=== PATIENT | male | born 1940 | race Caucasian/White ===

== ENCOUNTER 2017-03-04 13:34 | Inpatient (IN) | payer MEDICARE ==
[~2017-03-04] VITALS: Ht 182.9 cm; Wt 85.4 kg
--- NOTE | ~2017-03-04 | HP ---
History And Physical [place] [id number] [facility] [place]. [address] NAME: DUYEN RIVERA : 42 STATUS : ADM IN [facility]#: [id number] AGE: 76 ADM/REG DATE : 03/04/17 MR#: [id number] REPORT SERV DATE: 03/04/17 DICTATED BY: JOSELITO FLORES II DATE: 03/04/17 REPORT STATUS : Draft TRANSCRIBED BY: MODL DATE: 03/04/17 DATE OF ADMISSION: 03/04/2017 PRIMARY ONCOLOGIST: Dr. Chaudhari. CHIEF COMPLAINT: Nausea, abdominal pain, constipation, and decreased urine output. HISTORY OF PRESENT ILLNESS: The patient is a 76-year-old male with a history of metastatic urothelial cancer, coronary artery disease, GERD, and depression who presented to [facility] from Dr. Chaudhari's office after persistent nausea and constipation since last week. The patient received chemotherapy and has been nauseous ever since, but has since not been able to pass stool and has noticed a drop in his urine output. In the clinic, Dr. Chaudhari has been giving fluids, even a bottle of Mag citrate, and the patient has still not been able to go at home. He had tried multiple things and his even tried an enema and he still has not had a bowel movement. Dr. Chaudhari asked for admission for further workup of possible bowel obstruction. Currently, the patient does have significant amount of pain in his right upper quadrant. Notes that his abdomen has become quite distended with hard stool on the right. He notes most of his problems have occurred after his ileal conduit was placed. Otherwise, the patient denies any fevers, chills, shortness of breath, or chest pain. REVIEW OF SYSTEMS: 10-point review of systems otherwise negative except for HPI. PAST MEDICAL HISTORY: 1. Metastatic urothelial carcinoma, diagnosed in 2014; status post cystoprostatectomy in 2015, as well as multiple rounds of chemotherapy, immunotherapy, and most recently Taxotere with progression. 2. CAD with stent in June 2014. 3. Hyperlipidemia. 4. Depression. 5. GERD. 6. Abdominal hernia. SURGICAL HISTORY: Cystoprostatectomy with ileal conduit, port placement, cardiac stent. SOCIAL HISTORY: The patient is a former smoker up to three packs a day for 20 years, discontinued in 1983. Denies any alcohol or drug use. The patient is with his spouse and three children. FAMILY HISTORY: Mother and father with no history of cancer. HOME MEDICATIONS: MS Contin, aspirin, calcium, Compazine, Decadron, Lexapro, multivitamin, oxycodone, potassium, Protonix, simvastatin, Zofran. PHYSICAL EXAMINATION: VITAL SIGNS: Blood pressure 111/62, temperature 97.5, pulse 122, respirations 30, O2 History And Physical [address] [address] NAME: DYUEN RIVERA : 41 STATUS : ADM IN [facility]#: [id number] AGE: 76 ADM/REG DATE : 03/04/17 MR#: [id number] REPORT SERV DATE: 03/04/17 DICTATED BY: JOSELITO FLORES II DATE: 03/04/17 REPORT STATUS : Draft TRANSCRIBED BY: DONELL DATE: 03/04/17 saturation 95% on room air. GENERAL: The patient is somewhat malnourished and pale looking, but in no acute distress. NECK: Supple. Nontender. No lymphadenopathy or thyromegaly. HEENT: Moist mucous membranes. Pupils are equal, round, reactive to light. Conjunctivae clear. RESPIRATORY: Lungs are clear to auscultation bilaterally. No wheezes, rhonchi, or rales. Nonlabored breathing. CARDIOVASCULAR: Regular rate and rhythm. No murmurs, rubs, or gallops. ABDOMEN: Has an ileal conduit in the right lower quadrant with apparent hernia and distended hard masses in the right lower quadrant and left lower quadrant with decreased bowel sounds and tenderness to palpation in the right where the masses are. EXTREMITIES: No evidence of cyanosis, clubbing, edema. SKIN: No lesions, rashes, or wounds. NEUROLOGIC: No focal deficits. LABORATORY DATA: Pending. ASSESSMENT AND PLAN: The patient is a 76-year-old male with: 1. Likely bowel obstruction versus severe obstipation. We will check a flat and upright abdominal film and we will likely end up needing abdominal CT scan. We will wait until the x-rays are done before consideration of NG-tube. Otherwise, we will provide IV fluids, pain control antiemetics, and supportive care until further evaluation. 2. Metastatic urothelial carcinoma. Followed by Dr. Chaudhari. I will defer to him. 3. Oliguria. We will give IV fluids. 4. Coronary artery disease, gastroesophageal reflux disease, and hyperlipidemia. Continue home medications. 5. The patient is full code. Deep venous thrombosis prophylaxis with Lovenox. DANIEL/DONELL Joselito Flores II, MD / [id number] CC: MD BRITT Nicolas II, ANDREW OLIVER
--- NOTE | ~2017-03-04 | CN ---
Consultation Report [facility] [address] [place]. [address] NAME: DUYEN RIVERA : 42 STATUS : ADM IN [facility]#: [id number] AGE: 76 ADM/REG DATE : 03/04/17 MR#: [id number] REPORT SERV DATE: 03/05/17 DICTATED BY: YUNIEL LÓPEZ DATE: 03/05/17 REPORT STATUS : Draft TRANSCRIBED BY: MODL DATE: 03/05/17 CONSULTATION NOTE DATE OF CONSULTATION: 03/05/2017 SERVICE: General Surgery. ATTENDING: Yuniel López M.D. RESIDENT: Rebecca Bowen M.D. CHIEF COMPLAINT: Nausea and abdominal pain, as well as decreased urine output. HISTORY OF PRESENT ILLNESS: This is a 76-year-old male, with a history of metastatic urothelial cancer, who is status post ileal conduit, who presented with one week of nausea and constipation. The patient's notes he has also had no urine output for the last 48 hours. He does have to take medication usually to have regular bowel movements. In general he has bowel movements once or twice a week, however, he has not had a bowel movement at all this week despite enemas and Mag citrate. The patient had a flat and upright abdominal x- ray, showing several air-fluid levels as well as his hernia appeared to be containing a loop of large bowel that has a significant amount of stool burden within it. CT scan with IV and p.o. contrast has been ordered, but has not yet been done at this time. The patient denies any fever, he is currently having any nausea, he is n.p.o. at this time. does note that he has had generalized weakness for the past several days. REVIEW OF SYSTEMS: Negative on 10-point review except as noted in HPI. PAST MEDICAL HISTORY: Metastatic urothelial cancer currently under taking chemotherapy, coronary artery disease, hyperlipidemia, depression, GERD, and known abdominal hernia. PAST SURGICAL HISTORY: Cystoprostatectomy, ileal conduit, cardiac stents, and Port-A-Cath placement. SOCIAL HISTORY: The patient is a former smoker with a 60 pack year history, quit in 1983. Denies any alcohol or drug use. FAMILY HISTORY: Mother and father both , but no history of cancer. HOME MEDICATIONS: MS Contin, aspirin, calcium, Compazine, Decadron, Lexapro, multivitamins, oxycodone, potassium, Protonix, simvastatin, and Zofran. IMAGING: Flat and upright abdominal x-ray shows small bowel air-fluid levels in the left upper quadrant and possible bowel obstruction. The CT scan is pending at this time. Consultation Report [facility] [address] [place]. [address] NAME: DUYEN RIVERA : 42 STATUS : ADM IN [facility]#: [id number] AGE: 76 ADM/REG DATE : 03/04/17 MR#: [id number] REPORT SERV DATE: 03/05/17 DICTATED BY: YUNIEL LÓPEZ DATE: 03/05/17 REPORT STATUS : Draft TRANSCRIBED BY: DONELL DATE: 03/05/17 LABORATORY DATA: CBC; white count 7.7, hemoglobin 9.8, hematocrit 30, platelets 331. BMP; sodium is 136, potassium 5.1, chloride 98, carbon dioxide 27, BUN 71, creatinine 3.84, glucose 133, albumin is 2.7, a lactate was done yesterday on admission, it was 2.2 at that time. PHYSICAL EXAMINATION: VITAL SIGNS: Temperature 97.5, pulse 105, respirations 16, blood pressure 129/82, O2 saturation 94% on 2 L nasal cannula. GENERAL: The patient is slightly drowsy, but follows commands and answers questions. In no acute distress. CVS: Regular rate and rhythm. LUNGS: Clear to auscultation bilaterally. ABDOMEN: Soft. The patient does have mild diffuse tenderness to palpation especially over the area of herniation, on the right side of his hernia, you can feel quite a bit of stool burden in the colon involving that hernia, on the left side it can be reduced, but with the colon full of stool, unable to fully reduce the right side of the hernia. The ileal conduit is pink and viable. The patient has decreased bowel sounds. EXTREMITIES: Moves all extremities well. ASSESSMENT: This is a 76-year-old, male, with history of urothelial cancer and has an ileal conduit and a known ventral hernia. He now presents with nausea, constipation, likely bowel obstruction, and oliguria. PLAN: We will follow up the CT of the abdomen and pelvis to see if we can better define where he is obstructed. Currently unable to fully reduce the hernia, secondary to large stool burden in the area of the colon that has involved the hernia, could possibly further reduce hernia if we were able to clear out some of the stool using enemas, but again we will wait for the CT results before starting enemas. Thank you for the consult. DICTATED BY: MD LAURA Hagan/MODL Yuniel López M.D. / [id number] CC: MD BRITT Nicolas II, ANDREW OLIVER
--- NOTE | ~2017-03-04 | CN ---
Consultation Report [facility] [address] [place]. [address] NAME: DUYEN KELLY : 42 STATUS : ADM IN [facility]#: [id number] AGE: 76 ADM/REG DATE : 03/04/17 MR#: [id number] REPORT SERV DATE: 03/05/17 DICTATED BY: CHARITY LO DATE: 03/05/17 REPORT STATUS : Draft TRANSCRIBED BY: MODL DATE: 03/05/17 PULMONARY AND CRITICAL CARE BRIEF EVALUATION DATE OF CONSULTATION: 03/05/2017 REASON FOR EVALUATION: Acute hypoxemic respiratory failure and vomiting in a patient with metastatic cancer. I was asked to evaluate Mr. Kelly on 461, for respiratory distress with rapid decline. He is known do not resuscitate, do not intubate. Evidently, he has had a bowel obstruction with development of copious feculent vomiting this evening, causing suspected aspiration with new coarse breath sounds and hypoxemia. In few minutes it took me to arrive at the room from walking from the MICU, the patient had become pulseless and apneic. On my evaluation, he was pale with no spontaneous respirations and no palpable pulses. There were no heart sounds or lung sounds on auscultation, and he had fixed and dilated pupils. In keeping with his known advanced directive, which was confirmed with his , Tamara Kelly at the bedside, we elected to allow him a natural and peaceful passing, and he short time later. We did complete a hospital DNR form after discussing his case with his at the time which I arrived to the unit as there was not one on the chart after reviewing his advance directive from outside facility. All of her questions were answered, and the formulation chemist was notified. No charges will be associated with this encounter. DONNA/DONELL Charity Lo MD / [id number] CC: MD Augie Nicolas II
--- NOTE | ~2017-03-04 | CN ---
Consultation Report [facility] [address] [place]. [address] NAME: DUYEN RIVERA : 42 STATUS : DIS IN PAT#: [id number] AGE: 76 ADM/REG DATE : 03/04/17 MR#: [id number] REPORT SERV DATE: 03/07/17 DICTATED BY: SONIA DOLAN DATE: 03/05/17 REPORT STATUS : Draft TRANSCRIBED BY: MODL DATE: 03/05/17 RENAL CONSULT DATE OF CONSULTATION: 03/05/2017 REASON FOR CONSULTATION: Regarding acute kidney injury. BRIEF HISTORY OF PRESENT ILLNESS: A 76-year-old male with a history of normal renal function with a creatinine of 0.8 on 03/01 in the office with past medical history of metastatic urothelial cancer requiring a cystoprostatectomy in 08/2015. Postoperatively, the patient has been dealing with constipation to the varying levels since that time. Of recent, the patient has had some more progressive constipation resulting in significant stool hardening and outpouching of the abdomen with really no urine output over the last couple of days. BUN and creatinine are 71 and 3.84, and we are called for further evaluation and management of renal dysfunction. CT scan with oral contrast pending at this time. Urology and Surgery have been consulted as well for evaluation. Electrolytes currently stable. PAST MEDICAL HISTORY: 1. Metastatic urothelial cancer diagnosed in 2014, status post cystoprostatectomy in 08/2015 with multiple rounds of chemotherapy, immunotherapy, and Taxotere with progression. 2. Coronary artery disease with stent in 06/2014. 3. Hyperlipidemia. 4. Depression. 5. GERD. 6. Abdominal hernia. SURGICAL HISTORY: Cystoprostatectomy with ileal conduit, port placement, and cardiac stent. MEDICATIONS ON ADMISSION: Include MS Contin, aspirin, calcium, Compazine, Decadron, Lexapro, multivitamin, oxycodone, potassium, Protonix, Zocor, and Zofran. SOCIAL HISTORY: The patient is a former smoker, 3 packs a day for 20 years, discontinued in 1983. No alcohol or illicit drug use. The patient is with children. REVIEW OF SYSTEMS: Negative except as mentioned in HPI. PHYSICAL EXAMINATION: VITAL SIGNS: Temperature is 97.5, blood pressure 130/80, pulse is 105, respiratory rate is 20. GENERAL: Well-developed but chronically ill-appearing white male, in no distress but is somnolent. HEENT: Normocephalic and atraumatic. Pupils are equal. Eyes are sunken with some bitemporal wasting. Mucous membranes are dry. Consultation Report [place] [id number] [place]. [address] NAME: DUYEN RIVERA : 42 STATUS : DIS IN PAT#: [id number] AGE: 76 ADM/REG DATE : 03/04/17 MR#: [id number] REPORT SERV DATE: 03/07/17 DICTATED BY: SONIA DOLAN DATE: 03/05/17 REPORT STATUS : Draft TRANSCRIBED BY: DONELL DATE: 03/05/17 NECK: Supple. No thyromegaly. CARDIOVASCULAR: Regular rate and rhythm. No murmurs appreciated. RESPIRATORY: Clear to auscultation bilaterally. Normal respiratory effort. ABDOMEN: With healed incision noted on the left side of the abdomen and what appears to be an incisional hernia that is soft and seems to be reducible; however, on the right lower quadrant significant tenderness with hardening. EXTREMITIES: No clubbing, cyanosis, or edema. SKIN: No rashes or ulcerations appreciated. NEURO: Moves all extremities but generalized weakness noted. LABORATORY DATA: Sodium 136, potassium 5.1, chloride 98, BUN 71, creatinine 3.8, glucose 133, calcium 7.8, magnesium 3.3. White count 7.7, hemoglobin 9.8, platelet count 331, albumin is 2.7. ASSESSMENT AND PLAN: 1. Anuric acute kidney injury with baseline creatinine of 0.8 four days ago. Extremely suspicious for obstructive uropathy associated with severe constipation plus or minus bowel injury. 2. Severe constipation refractory to magnesium citrate, senna, Linzess. Concern regarding providing patient with additional enema given concern for bowel injury. 3. Metastatic urothelial carcinoma, status post cystoprostatectomy in 08/2015. 4. Coronary artery disease. 5. Hyperlipidemia. Urology and General Surgery have been consulted. Continue supportive care. Avoid nephrotoxins. We will monitor labs and follow along with you. Plan to decrease IV fluids while patient is aneuric. Increase IV fluids once he begins to void. ANANYAP/MODL Sonia Dolan M.D. / [id number] CC: MD Augie Nicolas II, MD
--- NOTE | ~2017-03-04 | CN ---
Consultation Report [address] [place]. [address] NAME: DUYEN KELLY : 42 STATUS : DIS IN PAT#: [id number] AGE: 76 ADM/REG DATE : 03/04/17 MR#: [id number] REPORT SERV DATE: 03/07/17 DICTATED BY: Blu LUO DATE: 03/05/17 REPORT STATUS : Draft TRANSCRIBED BY: MODTej DATE: 03/05/17 CONSULTATION NOTE DATE OF CONSULTATION: 03/05/2017 CHIEF COMPLAINT: History of radical cystoprostatectomy with ileal conduit and decreased urine output. HISTORY OF PRESENT ILLNESS: Mr. Kelly is a pleasant 76-year-old white male, interviewed with his , who was admitted yesterday with abdominal pain, distention, and decreased urine output. He has a history of urothelial cancer, status post radical cystoprostatectomy with ileal conduit, urinary diversion, 08/[address] [facility] [address] Ruelas. He now has METS to his sacrum and lung, and is on chemotherapy with his last treatment being 03/01/2017. He complains of no bowel movement for many days at least five and diminished urine output for two to three days. He was admitted for further evaluation. PAST MEDICAL HISTORY: 1. 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 2. CAD, status post stent. 3. Hyperlipidemia. 4. GERD. 5. Known abdominal hernia. 6. Depression. PAST SURGICAL HISTORY: 1. Cystoprostatectomy with ileal conduit, 08/2015. 2. Left knee surgery. 3. Cardiac stent. 4. Port placement, 05/2016. HOME MEDICATIONS: Os-Prasanna, lactulose, morphine, multivitamins, ondansetron, oxycodone, pantoprazole, Compazine, simvastatin, potassium. ALLERGIES: CIPRO CAUSES AN UNKNOWN REACTION. SOCIAL HISTORY: The patient has a [id number] history, none since 1983. Denies current use of alcohol or drugs. He is . FAMILY HISTORY: Negative for urologic disease. REVIEW OF SYSTEMS: Full 12-point review of systems is negative except as noted above. PHYSICAL EXAMINATION: Consultation Report [address] [place]. [address] NAME: DUYEN KELLY : 42 STATUS : DIS IN PAT#: [id number] AGE: 76 ADM/REG DATE : 03/04/17 MR#: [id number] REPORT SERV DATE: 03/07/17 DICTATED BY: Blu LUO DATE: 03/05/17 REPORT STATUS : Draft TRANSCRIBED BY: DONELL DATE: 03/05/17 GENERAL: Somnolent, uncomfortable appearing 76-year-old white male. VITAL SIGNS: Afebrile with normal vital signs. HEENT: Normocephalic, atraumatic. CHEST: Clear. HEART: Regular rate and rhythm. ABDOMEN: Distended. He has a right lower quadrant ileal conduit with a little if any urine in it. He has a lower midline incision with herniation both around the conduit and through this incision extending across his abdomen. I am unable to reduce this. No CVA tenderness noted. : Normal external genitalia. EXTREMITIES: No lower extremity edema. PERTINENT LABORATORY: Creatinine 3.84, up from 3.21 on admission. White count 7700. Flat and upright abdomen shows air-fluid levels consistent with bowel obstruction. CT scan pending. IMPRESSION: 1. History of transitional cell carcinoma, status post radical cystoprostatectomy. 2. Known end-stage renal and probable parastomal hernia. 3. Probable bowel obstruction. 4. Severe oliguria secondary to dehydration versus obstruction. PLAN: He has had oral contrast, so he should be getting his CT scan soon. General surgery is consulted and they are actually on the floor now. Further intervention will depend upon findings. If indeed his upper tracts are obstructed, then he would need nephrostomy tubes whether surgical intervention has a role here depends upon General Surgery findings. NANY/DONELL Blu Luo M.D. / [id number] CC: MD Maxine Nicolas II, Andrew Oliver
--- NOTE | ~2017-03-04 | DS ---
Discharge Summary [facility] [address] [place]. [address] NAME: DUYEN RIVERA : 42 STATUS : DIS IN PAT#: [id number] AGE: 76 ADM/REG DATE : 03/04/17 MR#: [id number] REPORT SERV DATE: 03/07/17 DICTATED BY: JOSELITO FLORES II DATE: 03/06/17 REPORT STATUS : Draft TRANSCRIBED BY: MODL DATE: 03/06/17 ADMISSION DATE: 03/04/2017 DISCHARGE DATE: 03/05/2017 SUMMARY Date and time of 03/05/2017 at 2240 hours. HOSPITAL COURSE: Please refer to history and physical dated 03/04/[address] Joselito Flores for complete details pertaining to patient's initial presentation upon admission and health history. Please also refer to consultation dated 03/05/[address] Yuniel López, Gastroenterology. Briefly, the patient was a 76-year-old male with a past medical history significant for metastatic urothelial carcinoma, status post cystoprostatectomy in 2015 as well as multiple rounds of chemotherapy, immunotherapy, and most recently Taxotere with progression, coronary artery disease with stent in 06/2014, hyperlipidemia, depression, gastroesophageal reflux disease, and abdominal hernia, who was referred to direct admission at [facility] per Oncology for further evaluation and treatment of nausea, abdominal pain, constipation, and decreased urine output. The patient was admitted for likely bowel obstruction versus severe obstipation and oliguria in the setting of metastatic urothelial carcinoma. Initial workup included laboratory data which reported the patient's creatinine to be 3.21 upon admission. Next morning, the patient's creatinine trended upward to 3.84. The patient's baseline creatinine prior to admission was approximately 0.80. Concern for obstruction of urostomy. Multiple subspecialists were consulted to assist in the patient's care to include Oncology, Urology, Nephrology, and General Surgery. CT of the abdomen and pelvis reported large ventral abdominal wall hernia containing multiple loops of mildly distended small bowel and colon suggestive of partial obstruction. Report also noted mild hydronephrotic changes to both kidneys and ascites. General Surgery was consulted for evaluation and surgical recommendations. Initial recommendation included using enema to clear out some of the stool. Enema regimen was initiated on afternoon of 03/05/2017. The patient suffered severe respiratory distress with rapid decline in the setting of bowel obstruction with development of copious feculent vomiting causing suspected aspiration. [employer] presented bedside for evaluation of acute hypoxic respiratory failure and Discharge Summary [address] [address] NAME: DUYEN RIVERA : 42 STATUS : DIS IN PAT#: [id number] AGE: 76 ADM/REG DATE : 03/04/17 MR#: [id number] REPORT SERV DATE: 03/07/17 DICTATED BY: JOSELITO FLORES II DATE: 03/06/17 REPORT STATUS : Draft TRANSCRIBED BY: DONELL DATE: 03/06/17 vomiting in a patient with metastatic cancer. The patient became pulseless and apneic with no spontaneous respirations and no palpable pulses. The patient was known do not resuscitate/do not intubate, confirmed with his at the bedside. The patient 03/05/2017 at 2240 hours. CAUSE OF : Suspected aspiration secondary to bowel obstruction with development of copious feculent vomiting in the setting of known metastatic bladder cancer with metastases to lung and bone. JENNY/DONELL GAYLA Aly Joselito Flores II, MD / [id number] CC: MD Augie Nicolas II
[~2017-03-04 13:34] MED LIST: ASAB PO; CALTRA600D PO; DSS PO; ENDOCET1 TAB PO; K-PHOS 500 MG500 MG PO; LEXAPRO10 PO; LINZESS 145 M145 MCG PO; MAGOX4 PO; MULTIPLE VIT PO; PROTONIX PO; ZOCOR20 PO
[2017-03-04] MEDS ORDERED: MULTIVITAMI1 PO (16:47)
[2017-03-04] MEDS ORDERED: POTASSIUM OTC PO (16:47)
[2017-03-04] MEDS ORDERED: OS500+D PO (16:48)
[2017-03-04] MEDS ORDERED: MSCONT15 PO (16:48)
[2017-03-04] MEDS ORDERED: ZOFRANODT8 PO (16:49)
[2017-03-04] MEDS ORDERED: OXYCOD PO (16:49)
[2017-03-04] MEDS ORDERED: COMP10B PO (16:50)
[2017-03-04] MEDS ORDERED: ZOCOR20 PO (16:51)
[2017-03-04] MEDS ORDERED: PROTONIX PO (16:51)
[2017-03-04] MEDS ORDERED: CONSTULOSE PO (16:51)
[2017-03-04 17:50] LABS: BASOPHILS 0.2 %; BASOPHILS ABSOLUTE 0.03 10/3/uL (0.0-0.16); EOSINOPHILS 0 %; HEMATOCRIT 30.5 % (40.0-51.0); HEMOGLOBIN 10.1 g/dL (13.6-17.8); IMMATURE GRANULOCYTES 1.5 %; IMMATURE GRANULOCYTES ABSOLUTE 0.18 10/3/uL (0.0-0.11); LYMPHOCYTES 1.6 %; LYMPHOCYTES ABSOLUTE 0.19 10/3/uL (0.67-4.30); MANUAL DIFF NO %; MEAN CORPUS HGB CONC 33.1 g/dL (32.0-36.0); MEAN CORPUSCULAR HEMOGLOB 26.5 pg (26.0-34.0); MEAN CORPUSCULAR VOLUME 80.1 fL (80-100); MONOCYTES 1.1 %; MONOCYTES ABSOLUTE 0.13 10/3/uL (0.21-1.20); NEUTROPHILS 95.6 %; NEUTROPHILS ABSOLUTE 11.72 10/3/uL (2.02-8.40); PLATELET COUNT 340 10/3/uL (150-400); RBC DISTRIBUTION WIDTH 17.5 % (12.0-16.0); RED CELL COUNT 3.81 10/6/uL (4.7-6.1); WHITE BLOOD CELLS 12.3 10/3/uL (4.5-10.5)
[2017-03-04 18:11] LABS: A/G RATIO 0.7 (0.7-1.9); ALBUMIN 2.7 G/DL (3.5-5.0); ALKALINE PHOSPHATASE 72 U/L (45-117); BUN (BLOOD UREA NITROGEN) 59 MG/DL (6-23); CALCIUM, SERUM 8.2 MG/DL (8.5-10.4); CHLORIDE, SERUM 96 MMOL/L (96-112); CO2 (CARBON DIOXIDE) 27 MMOL/L (24-34); CREATININE 3.21 MG/DL (0.70-1.30); GFR AFRICAN AMERICAN 21 ML/MIN (>=60); GFR NON AFRICAN AMERICAN 18 ML/MIN (>=60); GLUCOSE, SERUM 140 MG/DL (60-99); POTASSIUM, SERUM 5.1 MMOL/L (3.5-5.3); SGOT(AST) 18 U/L (5-40); SGPT(ALT) 24 U/L (5-65); SODIUM, SERUM 132 MMOL/L (135-148); TOTAL BILIRUBIN 1.2 MG/DL (0-1.2); TOTAL PROTEIN 6.7 G/DL (6.0-8.5)
[2017-03-05 05:25] LABS: HEMOGLOBIN 9.8 g/dL (13.6-17.8); MEAN CORPUS HGB CONC 32.7 g/dL (32.0-36.0); MEAN CORPUSCULAR HEMOGLOB 26.1 pg (26.0-34.0); MEAN CORPUSCULAR VOLUME 79.8 fL (80-100); MEAN PLATELET VOLUME 8.7 fL (9.2-13.0); PLATELET COUNT 331 10/3/uL (150-400); RBC DISTRIBUTION WIDTH 17.4 % (12.0-16.0); RED CELL COUNT 3.76 10/6/uL (4.7-6.1); WHITE BLOOD CELLS 7.7 10/3/uL (4.5-10.5)
[2017-03-05 05:33] LABS: MANUAL DIFF YES %
[2017-03-05 05:40] LABS: BUN (BLOOD UREA NITROGEN) 71 MG/DL (6-23); CALCIUM, SERUM 7.8 MG/DL (8.5-10.4); CHLORIDE, SERUM 98 MMOL/L (96-112); CO2 (CARBON DIOXIDE) 27 MMOL/L (24-34); CREATININE 3.84 MG/DL (0.70-1.30); GFR AFRICAN AMERICAN 17 ML/MIN (>=60); GFR NON AFRICAN AMERICAN 14 ML/MIN (>=60); GLUCOSE, SERUM 133 MG/DL (60-99); POTASSIUM, SERUM 5.1 MMOL/L (3.5-5.3); SODIUM, SERUM 136 MMOL/L (135-148)
[2017-03-05 07:04] LABS: ANISOCYTOSIS 1+ (5-10/OIF) (0-5/OIF); BAND NEUTROPHILS 12 %; LYMPHOCYTES 1 %; LYMPHOCYTES ABSOLUTE (CALC) 0.08 10/3/uL (0.67-4.30); MICROCYTES 1+ (5-10/OIF) (0-5/OIF); MONOCYTES 1 %; MONOCYTES ABSOLUTE (CALC) 0.08 10/3/uL (0.21-1.20); NEUTROPHILS ABSOLUTE (CALC) 7.55 10/3/uL (2.02-8.40); SEGMENTED NEUTROPHIL (0) 86 %; TOTAL NUCLEATED CELLS 100
[2017-03-05 07:05] LABS: HYPOCHROMIA 1+ (3-10/OIF) (0-2/OIF); PLATELET ESTIMATE ADQ (ADEQUATE)
[2017-03-05 22:27] LABS: ALLENS TEST Pos; BE (BASE EXCESS) -6.1 MEQ/L (0 +/- 2.5); CARBOXYHEMOGLOBIN 1.6 % (0-3); DEVICE NRB; HCO3 (ACTUAL BICARBONATE) 25.2 MEQ/L (23-27); HEMOBLOGIN CONTENT 11.3 G/DL (14-18); INSTRUMENT SERIAL # 8083; METHEMOGLOBIN 0.2 % (0-3); O2 CONTENT 6.6 VOL% (18-24); OPERATOR ID 30014; PCO2 (CO2 TENSION) 88 MMHG (35-45); PO2 (O2 TENSION) 34 MMHG (79-93); SAMPLE Arterial; pH 7.08 (7.37-7.43)
== END 2017-03-05 22:40 | disposition expired | DRG 393 ==
LOC: ENRESERVDT → ENRESERV → ENRESERVTM → 4EA 13:58
PROVIDERS: Internal Medicine
DX: K43.6 Other and unspecified ventral hernia with obstruction, without gangrene (principal); N18.6 End stage renal disease; J96.01 Acute respiratory failure with hypoxia; R34 Anuria and oliguria; C78.00 Secondary malignant neoplasm of unspecified lung; R18.8 Other ascites; N17.9 Acute kidney failure, unspecified; C79.51 Secondary malignant neoplasm of bone; N13.30 Unspecified hydronephrosis; T17.918A Gastric contents in respiratory tract, part unspecified causing other injury, initial encounter; Z93.6 Other artificial openings of urinary tract status; Z66 Do not resuscitate; F32.9 Major depressive disorder, single episode, unspecified; K59.00 Constipation, unspecified; I25.10 Atherosclerotic heart disease of native coronary artery without angina pectoris; E78.00 Pure hypercholesterolemia, unspecified; F41.9 Anxiety disorder, unspecified; Z95.5 Presence of coronary angioplasty implant and graft; Z92.21 Personal history of antineoplastic chemotherapy; Z85.59 Personal history of malignant neoplasm of other urinary tract organ; K21.9 Gastro-esophageal reflux disease without esophagitis; Z87.891 Personal history of nicotine dependence; Z79.82 Long term (current) use of aspirin; Z79.899 Other long term (current) drug therapy; Z88.1 Allergy status to other antibiotic agents; E86.0 Dehydration; K43.5 Parastomal hernia without obstruction or gangrene
CPT/HCPCS: 36600; 74020; 74176; 80048; 80053; 82805; 83605; 83735; 84443; 85025; A9270-GY; J1170; J2405